=== PATIENT | male | born 1935 | race Caucasian/White ===

== ENCOUNTER → 2016-10-23 | Outpatient (CLI) | payer OTHER | END | disposition home or self-care (01) | LOC: PCVCIMAG 09:20 | PROVIDERS: ATTEND Internal Medicine | DX: I25.10 Atherosclerotic heart disease of native coronary artery without angina pectoris (principal); I65.23 Occlusion and stenosis of bilateral carotid arteries; I45.3 Trifascicular block; I10 Essential (primary) hypertension; Q23.1 Congenital insufficiency of aortic valve; E78.5 Hyperlipidemia, unspecified | CPT/HCPCS: 80061; 93005; 93880; G0463 ==

== ENCOUNTER → 2017-04-30 | Outpatient (CLI) | payer OTHER | END | disposition home or self-care (01) | LOC: PCVCCLINIC 10:02 | PROVIDERS: ATTEND Internal Medicine | DX: I25.10 Atherosclerotic heart disease of native coronary artery without angina pectoris (principal); E78.5 Hyperlipidemia, unspecified; I65.23 Occlusion and stenosis of bilateral carotid arteries; I45.3 Trifascicular block; I12.9 Hypertensive chronic kidney disease with stage 1 through stage 4 chronic kidney disease, or unspecified chronic kidney disease; I45.10 Unspecified right bundle-branch block; I44.0 Atrioventricular block, first degree; I44.4 Left anterior fascicular block; N18.3 Chronic kidney disease, stage 3 (moderate); Z95.1 Presence of aortocoronary bypass graft; Z87.891 Personal history of nicotine dependence; Z79.82 Long term (current) use of aspirin | CPT/HCPCS: 80061; 93005; G0463 ==

== ENCOUNTER → 2017-10-13 | Outpatient (CLI) | payer OTHER | END | disposition home or self-care (01) | LOC: PCVCIMAG 09:41 | DX: I65.23 Occlusion and stenosis of bilateral carotid arteries (principal); I25.119 Atherosclerotic heart disease of native coronary artery with unspecified angina pectoris; I45.3 Trifascicular block; I10 Essential (primary) hypertension; E78.2 Mixed hyperlipidemia; R00.1 Bradycardia, unspecified; R94.31 Abnormal electrocardiogram [ECG] [EKG]; I45.10 Unspecified right bundle-branch block; I44.0 Atrioventricular block, first degree; Z87.891 Personal history of nicotine dependence; Z79.82 Long term (current) use of aspirin; Z79.899 Other long term (current) drug therapy | CPT/HCPCS: 93005; 93880; G0463 ==

== ENCOUNTER → 2018-04-13 | Outpatient (CLI) | payer OTHER | END | disposition home or self-care (01) | LOC: PCVCIMAG 10:18 | DX: I25.10 Atherosclerotic heart disease of native coronary artery without angina pectoris (principal); E78.5 Hyperlipidemia, unspecified; I10 Essential (primary) hypertension; I45.3 Trifascicular block; Z95.1 Presence of aortocoronary bypass graft | CPT/HCPCS: 93325; 93351 ==

== ENCOUNTER → 2019-03-22 | Outpatient (CLI) | payer OTHER | END | disposition home or self-care (01) | LOC: PCVCCLINIC 09:30 | PROVIDERS: ATTEND Internal Medicine | DX: I25.10 Atherosclerotic heart disease of native coronary artery without angina pectoris (principal); I65.23 Occlusion and stenosis of bilateral carotid arteries; I45.3 Trifascicular block; E78.5 Hyperlipidemia, unspecified; Z79.82 Long term (current) use of aspirin | CPT/HCPCS: 36415; 80061; 93005; G0463 ==

== ENCOUNTER → 2019-09-15 | Outpatient (CLI) | payer OTHER ==
--- NOTE | 2019-09-15 09:12 | PCVCIMAG ---
APPROVED REPORT Indications Stenosis Risk Factors Hypertension: Hyperlipidemia Doppler Spectral Velocity Analysis PSV / EDVPSV / EDV ECA (R) 138 / 16 cm/sECA (L) 125 / 21 cm/s dICA (R) 56 / 16 cm/sdICA (L) 64 / 22 cm/s Yang (R) 72 / 23 cm/smICA (L) 100 / 29 cm/s pICA (R) 93 / 21 cm/spICA (L) 151 / 37 cm/s Bulb (R) 72 / 21 cm/sBulb (L) 123 / 33 cm/s dCCA (R) 79 / 18 cm/sdCCA (L) 88 / 21 cm/s mCCA (R) 71 / 19 cm/smCCA (L) 103 / 21 cm/s Vert (R) 56 / 12 cm/sVert (L) 39 / 11 cm/s ICA/CCA 1.18ICA/CCA 1.72 Basic Measurements Blood Pressure: Pulses: Right Left RightLeft Brachial(Sitting) 96/82mnNw65/60mmHgTemporal Real Time B-Mode Imaging Vert. (R)AntegradeVert. (L)Antegrade Findings RIGHT CAROTID: The carotid bulb has moderate plaque. The proximal internal carotid artery shows <40% stenosis. The common carotid artery shows no significant stenosis. The external carotid artery shows 40% stenosis. LEFT CAROTID: The carotid bulb has moderate plaque. The proximal internal carotid artery shows 50% stenosis. The common carotid artery shows no significant stenosis. The external carotid artery shows no significant stenosis. Conclusion <40% stenosis of the right internal carotid artery with moderate plaque. 50% stenosis of the left internal carotid artery with moderate plaque. No change since September 2018 study.
--- NOTE | 2019-09-15 10:53 | PCVCIMAG ---
APPROVED REPORT Study performed: 09/15/2019 09:25:49 EXAM: Comprehensive 2D, Doppler, and color-flow Echocardiogram Patient Location: Echo lab Room #: 2Status: routine BSA: 1.92 HR: 50 bpmBP: 98/60 mmHg Rhythm: trifascicular block, bradycardia Other Information Study Quality: Good Risk Factors: Cardiac Risk Factors: HTN, Hyperlipidemia Indications CAD Hypertension/HDD S/P CABG 2D Dimensions IVSd: 9.53 (7-11mm)LVOT Diam: 20.66 (18-24mm) LVDd: 40.34 mm PWd: 12.12 (7-11mm)Ascending Ao: 33.86 (22-36mm) LVDs: 22.54 (25-40mm) Left Atrium: 40.69 (27-40mm) Aortic Root: 27.44 mm LV Single Plane 4CH: 59.26 % LV Single Plane 2CH: 55.84 % Biplane EF: 57.1 % Volumes Left Atrial Volume (Systole) Single Plane 4CH: 66.43 mLSingle Plane 2CH: 93.36 mL Biplane LA Volume: 79.00 mLLA ESV Index: 41.00 mL/m2 Aortic Valve AoV Peak Jair.: 1.67 m/s AO Peak Gr.: 11.66 mmHgLVOT Max P.21 mmHg LVOT Max V: 0.74 m/s TIGRE Vmax: 1.49 cm2 Mitral Valve E/A Ratio: 1.0 MV Decel. Time: 278.92 ms MV E Max Jair.: 0.79 m/s MV A Jair.: 0.81 m/s IVRT: 138.41 ms TDI E/Lateral E': 8.78E/Medial E': 11.29 Medial E' Jair.: 0.07 m/s Lateral E' Jair.: 0.09 m/s Pulmonary Valve PV Peak Jair.: 0.93 m/sPV Peak Gr.: 3.45 mmHg Pulmonary Vein P Vein S: 0.49 m/sP Vein A: 0.27 m/s P Vein D: 0.31 m/sP Vein A Dur.: 128.0 msec P Vein S/D Ratio: 1.58 Tricuspid Valve TR Peak Jair.: 2.58 m/s TR Peak Gr.: 26.56 mmHg TV Vmax: 0.87 m/sPA Pressure: 34.00 mmHg Left Ventricle The left ventricle is normal size. There is normal LV segmental wall motion. There is normal left ventricular wall thickness. Left ventricular systolic function is normal. The left ventricular ejection fraction is within the normal range. LVEF is 55-60%. Mild diastolic dysfunction is present (impaired relaxation pattern). Right Ventricle The right ventricle is normal size. The right ventricular systolic function is normal. Atria Left atrium is moderately dilated. Right atrium is moderately dilated. Aortic Valve Aortic valve is trileaflet, mildy calcified No aortic regurgitation is present. There is no aortic valvular stenosis. Mitral Valve The mitral valve is normal in structure. Moderate mitral regurgitation No evidence of mitral valve stenosis. Tricuspid Valve The tricuspid valve is normal in structure. Mild to moderate tricuspid regurgitation with a PA pressure of 34 mmHg. Pulmonic Valve The pulmonary valve is normal in structure. Trace pulmonic regurgitation. Great Vessels The aortic root is normal in size. The ascending aorta is normal in size. IVC is normal in size and collapses >50% with inspiration. Pericardium There is no pericardial effusion. There is no pleural effusion. <Conclusion> Left ventricular systolic function is normal. There is normal LV segmental wall motion. LVEF is 55-60%. Mild diastolic dysfunction Left atrium is moderately dilated. Aortic valve is trileaflet, mildy calcified. No aortic regurgitation or stenosis The mitral valve is normal in structure. Moderate mitral regurgitation Mild to moderate tricuspid regurgitation with a pulmonary artery pressure of 34 mmHg. There is no pericardial effusion.
== END | disposition home or self-care (01) ==
LOC: PCVCIMAG 08:36
PROVIDERS: ATTEND Internal Medicine
DX: I65.23 Occlusion and stenosis of bilateral carotid arteries (principal); I08.1 Rheumatic disorders of both mitral and tricuspid valves; I25.10 Atherosclerotic heart disease of native coronary artery without angina pectoris; I45.3 Trifascicular block; E78.5 Hyperlipidemia, unspecified; I12.9 Hypertensive chronic kidney disease with stage 1 through stage 4 chronic kidney disease, or unspecified chronic kidney disease; N18.3 Chronic kidney disease, stage 3 (moderate); Z95.1 Presence of aortocoronary bypass graft; Z87.891 Personal history of nicotine dependence; Z79.82 Long term (current) use of aspirin; Z79.899 Other long term (current) drug therapy
CPT/HCPCS: 93306; 93880